=== PATIENT | female | born 1980 | race Caucasian/White ===

== ENCOUNTER 2023-07-07 23:58 | Emergency (ER) | payer OTHER, SELFPAY ==
[2023-07-08 00:13] VITALS: BP 125/88
--- NOTE | 2023-07-08 01:59 | ED.GENMED ---
History of Present Illness
<AB Valdes - Last Filed: 07/11/23 01:30>
General
Chief Complaint: Dental Problem
Source: patient
Exam Limitations: none
Time Seen by Provider: 07/08/23 01:35
Travel History
Have you had any contact with someone who has COVID-19?: No
Do you have any symptoms of coronavirus? Fever > 100 degrees, chills, cough, shortness of breath, sore throat, loss of taste or smell, muscle aches, or headache?: No
History of Present Illness
History of Present Illness:
This is a 43 year old female that comes in with multiple complaints. States that she had a tooth extracted on Tuesday. States that the root had broken and they did a bone graft to help prevent any dry socket. States that they also sutured this.
States that on Tuesday she want back to the dentist as there was ulcers and they said that this was a reaction to the sutures which they removed. States that they also took the plug out that was coving the skin graft. States that she is taking
Zithromax. State that she has continued with pain in the right upper gum and that she has had nausea with diarrhea. States that tonight she felt trembly in side and she felt like there was a taste of infection in her mouth. States that she is
unable to eat anything as she has diarrhea right away. States that she has had a headache with the pain, lightheadedness and slightly SOB over the week. Denies any fever, chest pain, vomiting, urinary burning.
Past History
<AB Valdes - Last Filed: 07/11/23 01:30>
Past History
ED Past Medical History: Psychiatric (Anxiety, ) and Other (PE, Back pain. Migraines, Anemia. Mast cell activation Syndrome)
ED Past Surgical History: (X 5), Gynecological (Hysterectomy) and Other (Reconstruction of chest)
Social History
Tobacco: Non-smoker
Alcohol: Occasional
Personal:
Living: with family
Review of Systems
<AB Valdes - Last Filed: 07/11/23 01:30>
Review of Systems
All Other Systems: ROS reviewed and negative except as documented in HPI and ROS
Constitutional: Reports other ([place] shaky inside); Denies fever
EENT: Reports mouth swelling (Right upper gum line)
Respiratory: Reports trouble breathing (Occasionally over the week); Denies cough
Cardiac: Reports no symptoms; Denies chest pain
ABD/GI: Reports nausea and diarrhea; Denies abdominal pain or vomiting
: Reports no symptoms; Denies dysuria, frequency or urgency
Musculoskeletal: Reports no symptoms
Skin: Reports no symptoms
Neurological: Reports headache and other (Lightheaded)
Psychiatric: Reports no symptoms
Phy Exam
<AB Valdes - Last Filed: 07/11/23 01:30>
General Physical Exam
General Presentation: well appearing and no apparent distress
General age: appears stated age
General Skin: warm and dry
General Habitus: normal
General Mental: alert
General Hydration: appears well hydrated
ENT Exam
ENT Exam: TM's normal, pharynx normal, neck supple and other (Right upper posterior gum slightly red with white blistering noted)
Eye Exam
Eye Exam: EOMI
Cardiovascular Exam
Cardiovascular Exam: regular rate/rhythm, no edema, no murmur and normal peripheral pulses
Pulmonary Exam
Pulmonary Exam: lungs clear, no respiratory distress, no rales, chest non tender, no crackles, no rhonchi, no wheezing and no cough
Gastrointestinal Exam
Gastrointestinal Exam: normal bowel sounds, soft, no organomegaly, no pulsatile mass, non distended and tender (Left sided tenderness with palpation)
Musculoskeletal Exam
Musculoskeletal Exam: full ROM and no edema
Skin Exam
Skin Exam: normal color, warm/dry, no rash and no petechia
Psychiatric Exam
Psychiatric Exam: normal mood/affect
Course
<AB Valdes - Last Filed: 07/11/23 01:30>
Orders/Labs/Results
Orders:
Orders
07/08/23 01:57
0.9% Sodium Chloride 1000 ml [Nss] 1,000 ml IV BOLUS
Test Result ONCE
07/08/23 01:58
CT Abd/pelvis W Iv Cont Urgent
Comment:
Reason For Exam: Left sided tenderness. diarrhea
07/08/23 02:37
Complete Blood Count/With Diff Urgent
Comprehensive Metabolic Panel Urgent
HCG, Serum Qualitative Screen Urgent
Lactic Acid Urgent
Abnormal Lab Results
07/08/23
02:37
MCH 31.3 H pg
(27.0-31.0)
07/08/23 02:37
07/08/23 02:37
Vital Signs
Initial and Last Documented VS:
Initial Vital Signs
Temp Pulse Resp BP Pulse Ox
98.0 F 86 16 125/88 96
07/08/23 00:13 07/08/23 00:13 07/08/23 00:13 07/08/23 00:13 07/08/23 00:13
Last Documented Vital Signs
Temp Pulse Resp BP Pulse Ox
98.0 F 65 12 99/64 99
07/08/23 00:13 07/08/23 03:00 07/08/23 03:00 07/08/23 03:00 07/08/23 03:00
Sherrilllt;Vimal Davis DO - Last Filed: 07/08/23 04:54>
Orders/Labs/Results
Orders:
Orders
07/08/23 01:57
0.9% Sodium Chloride 1000 ml [Nss] 1,000 ml IV BOLUS
Test Result ONCE
07/08/23 01:58
CT Abd/pelvis W Iv Cont Urgent
Comment:
Reason For Exam: Left sided tenderness. diarrhea
07/08/23 02:37
Complete Blood Count/With Diff Urgent
Comprehensive Metabolic Panel Urgent
HCG, Serum Qualitative Screen Urgent
Lactic Acid Urgent
Abnormal Lab Results
07/08/23
02:37
MCH 31.3 H pg
(27.0-31.0)
07/08/23 02:37
07/08/23 02:37
Vital Signs
Initial and Last Documented VS:
Initial Vital Signs
Temp Pulse Resp BP Pulse Ox
98.0 F 86 16 125/88 96
07/08/23 00:13 07/08/23 00:13 07/08/23 00:13 07/08/23 00:13 07/08/23 00:13
Last Documented Vital Signs
Temp Pulse Resp BP Pulse Ox
98.0 F 65 12 99/64 99
07/08/23 00:13 07/08/23 03:00 07/08/23 03:00 07/08/23 03:00 07/08/23 03:00
<AB Valdes - Last Filed: 07/11/23 01:30>
MDM/Problems Addressed
Differential Diagnosis Includes:
Colitis, C-diff
MDM/Problems Addressed:
This is a 43 year old female that comes in with multiple complaints. States that she had a tooth pulled on Tuesday. Then she had a reaction to the sutures and plug that was removed on Tuesday. Patient is taking Zithromax at this time. States that
she also has nausea and diarrhea and that everything she eats goes right throw her. States that tonight she felt shaky inside and that her mouth tasted like there was an infection.
Will get labs. Stool spec. and CT to r/o any colitis.
Back into see patient. Explained that her blood work is normal. Patient has not been able to give any stool. Explained that if her CT is negative, will discharge patient home to follow up with the Oral surgeon tomorrow. Patient to continue with the
Zithromax as prescribed. Continue with the Tylenol 1000mg every 6 hours for pain. Return with any other concerns.
Chronic conditions affecting care:
PE on xarelto
Acute Exacerbation and/or Progression of Chronic Illness:
NA
<AB Valdes - Last Filed: 07/11/23 01:30>
*Radiology
Radiology exam reviewed: radiology read reviewed (CT- No acute abnormality throughout the abd or pelvis. including no intestinal obstruction or free air. Unremarkable appendix. Small anterior pericardial effusion. Probable 2.4cm right ovarian cyst.
)
*Pulse Oximetry
Patient hypoxic: no
*EKG
Interpreted by ED Provider?: NA
Rate: EKG- N/A
*Warranty Coordinator Interpretation
Rate: Warranty Coordinator- N/A
*Critical Care Note
Total Time (30-74mins, 75-104mins- exclusive of procedures): Not Applicable
<Vimal Davis DO - Last Filed: 07/08/23 04:54>
Update Note
Update Note:
CT abdomen and pelvis with contrast
Comparison: None
IMPRESSION:
No acute intracranial findings.
No acute bowel process. No obstruction, appreciable inflammatory process, or perforation
Occasional colonic diverticula without evidence for diverticulitis
Normal appendix
Stomach appears within normal limits.
Cholelithiasis without secondary findings to suggest cholecystitis. No ductal dilation. No evidence for pancreatitis
Kidneys and urinary bladder appear normal
2.4 cm probable small right ovarian cyst
No pelvic free fluid
Hysterectomy
Pectus excavatum
Small pericardial effusion
Bilateral saline breast implants partially visualized
ED Attending Note
<AB Valdes - Last Filed: 07/11/23 01:30>
-
Portions of this chart may have been created with voice recognition software.� Occasional wrong word or��sound alike� substitutions may have occurred due to the inherent limitations of voice recognition software.
Discharge Plan
Departure
Patient Disposition: Home (Routine Discharge)
Patient with high blood pressure during this ER visit?: No
Condition: Good
Covid-19: Not Applicable
Discharge Problem:
Pain, dental, Nausea and diarrhea
Instructions: Dental Pain (DC), Diarrhea, Adult ED
Prescriptions:
No Action
alprazolam 0.25 MG tablet
0.25 mg PO HS
Tylenol
PO PRN (Reason: pain)
oxycodone-acetaminophen [Percocet] 7.5 MG/325 MG tablet
1 tab PO Q4HPRN PRN (Reason: pain)
enoxaparin 60 MG/0.6 ML syringe
70 mg SC Q12H
loratadine [Claritin RediTabs] 5 MG tablet,disintegrating
5 mg PO HS
naproxen 375 MG tablet
375 mg PO BID Qty: 20 0RF
Rx Instructions:
Take with food.
hydrocodone-acetaminophen [Vicodin] 1 EACH tablet
1 ea PO Q6HPRN PRN (Reason: pain) Qty: 10 0RF
Referrals:
Blade Neri DO [Family Provider] - Call in 1-3 days for appt
Activity Restrictions/Additional Instructions:
As discussed, your blood work is all normal. You have been given IV fluids. Please follow up with the oral surgeon tomorrow for further evaluation. Continue with the Zithromax that you were given as directed. Tylenol 1000mg every 6 hours for pain.
You may also use ice to the face to help decrease the pain. IF YOU HAVE ANY OTHER CONCERNS PLEASE RETURN TO THE EMERGENCY ROOM.
Interventions
Interventions:
*Risk Screen - Suicide Last Done: 07/08/23 02:49
*General Assessment Last Done: 07/08/23 02:49
*Neglect/Abuse Screening Last Done: 07/08/23 02:49
*ED COVID-19 Vaccine History Last Done: 07/08/23 02:49
*Nursing Disposition Last Done: 07/08/23 05:31
Discharge Date and Time
Discharge Date/Time: 07/08/23 05:31
[2023-07-08 02:02] VITALS: BP 105/67
[2023-07-08] MEDS: NSS 1000 IV (02:45)
[2023-07-08 02:49] VITALS: BMI 27.1
[2023-07-08 03:00] VITALS: BP 99/64
[2023-07-08 03:07] LABS: % Basophils 1.1 % (0-2); % Eosinophils 3.8 % (0-6); % Immature Granulocytes 0.2 % (0-0.5); % Lymphocytes 36.5 % (20.5-51.1); % Monocytes 8.3 % (1.7-9.3); % Neutrophils 50.1 % (42.2-75.2); Absolute Basophils 0.1 10^3/uL (0-0.2); Absolute Eosinophils 0.2 10^3/uL (0-0.7); Absolute Lymphocytes 2.3 10^3/uL (1.2-3.4); Absolute Monocytes 0.5 10^3/uL (0.1-0.6); Absolute Neutrophils 3.1 10^3/uL (1.4-6.5); Hematocrit 40.1 % (37.0-47.0); Hemoglobin 14.2 g/dL (12.0-16.0); Mean Corp Hgb Conc. 35.4 g/dL (33.0-37.0); Mean Corpuscular Hgb 31.3 pg (27.0-31.0); Mean Corpuscular Volume 88.5 fL (81.0-99.0); Mean Platelet Volume 9.8 fL (7.4-10.4); Nucleated Red Blood Cells % 0 %; Platelet Count 345 10^3/uL (130-400); Red Blood Cell Count 4.53 10^6/uL (4.20-5.40); Red Cell Dist. Width 12.2 % (11.5-14.5); White Blood Cell Count 6.3 10^3/uL (4.8-10.8)
[2023-07-08 03:17] LABS: Lactic Acid 0.7 mmol/L (0.7-2.0)
[2023-07-08 03:21] LABS: HCG, Serum Qualitative Screen Negative
[2023-07-08 03:30] LABS: ALT (SGPT) 34 U/L (0-35); AST (SGOT) 36 U/L (14-36); Albumin 3.9 g/dl (3.5-5.0); Alkaline Phosphatase 85 U/L (38-126); Blood Urea Nitrogen 13 mg/dl (7-17); Calcium 9.4 mg/dl (8.4-10.2); Carbon Dioxide 24 mmol/L (22-30); Chloride 103 mmol/L (98-107); Estimated Creatinine Clearance 116 ml/min; Glucose 95 mg/dl (70-99); Potassium 3.7 mmol/L (3.5-5.1); Sodium 138 mmol/L (135-145); Total Bilirubin 0.6 mg/dl (0.2-1.3); Total Protein 6.3 g/dl (6.3-8.2); eGFR > 60.00
== END 2023-07-08 05:31 | disposition home or self-care (01) ==
LOC: EMR 23:58
PROVIDERS: Clinical Nurse Specialist Family Health; EMERGENCY PHYSICIAN Student in an Organized Health Care Education/Training Program; FAMILY PHYSICIAN Family Medicine
DX: K08.89 Other specified disorders of teeth and supporting structures (principal); R19.7 Diarrhea, unspecified; R11.0 Nausea
CPT/HCPCS: 99285; 96360; 96361; 74177; 80053; 83605; 84703; 85025; Q9967